=== PATIENT | male | born 1945 | race Caucasian/White ===

== ENCOUNTER → 2016-09-04 | Outpatient (CLI) | payer MEDICARE, OTHER ==
[~2016-09-04] VITALS: Ht 175.3 cm; Wt 102.3 kg
[~2016-09-04] MED LIST: CARVEDILOL; COREG 25MG25 MG/TAB PO; DILTI PO; DITROPAN XL 5MG5 M1 PO; K-DUR20 MEQ PO; K-TAB20 PO; LASIX 40MG TABL40 MG PO; LIPITOR20 MG PO; MONOPRIL40 MG PO; TIAZAC420 MG PO
== END ==
LOC: COL.RAD 08:25
DX: Z53.8 Procedure and treatment not carried out for other reasons (principal)

== ENCOUNTER 2016-09-11 05:53 | Outpatient (CLI) | payer OTHER ==
[~2016-09-11] VITALS: Ht 175.3 cm; Wt 102.3 kg
[2016-09-11] VITALS (28 sets, daily range): BP systolic 118–182; BP diastolic 61–94; PULSE 53–93; TEMP 97.4–98.8
[2016-09-11 07:10] LABS: BASO # 0.1 (0.0-0.2); BASO % 0.6 % (0.0-2.0); EOS # 0.3 (0.0-0.7); EOS % 4.1 % (0-4.0); GRAN % 63.9 % (42.2-75.2); HEMATOCRIT 44.1 % (42.0-52.0); HEMOGLOBIN 15.1 g/dl (13.5-18.0); LYMPH # 1.7 (1.2-3.4); LYMPH % 21.7 % (20.0-51.0); MEAN CELL VOLUME 91 fl (80.0-100.0); MEAN CORPUSCULAR HEMOGLOBIN 31 pg (27.0-31.0); MEAN CORPUSCULAR HGB CONC 34 g/dl (33.0-37.0); MEAN PLATELET VOLUME 10.1 fl (7.4-10.4); MONO # 0.7 (0.1-0.6); MONO % 9.3 % (1.7-9.3); PLATELET COUNT 232 K/mm3 (130-400); RED BLOOD COUNT 4.84 M/mm3 (4.20-5.60); REDCELL DISTRIBUTION WIDTH-CV 11.9 % (11.5-14.5); WHITE BLOOD COUNT 7.9 K/mm3 (4.8-10.8)
[2016-09-11 07:11] LABS: PROTHROMBIN TIME 11.6 SECONDS (9.7-12.8)
== END 2016-09-11 16:57 | disposition home or self-care (01) ==
LOC: COL.RAD 05:53
PROVIDERS: Radiology Diagnostic Radiology
DX: R80.8 Other proteinuria (principal); N18.3 Chronic kidney disease, stage 3 (moderate)
CPT/HCPCS: J2250; J3010